=== PATIENT | male | born 1990 | race Caucasian/White ===

== ENCOUNTER 2022-08-09 07:50 | Emergency (ER) | payer OTHER ==
[~2022-08-09] VITALS: Ht 188 cm; Wt 99.8 kg
[~2022-08-09 07:50] MED LIST: MELOXICAM7.5 MG PO
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
[2022-08-09] MEDS ORDERED: ONDANSETRON ODT4 MG PO (08:12)
[2022-08-09] MEDS ORDERED: MORPHINE SULFAT15 MG PO (08:12)
[2022-08-09] MEDS ORDERED: LIDOCAINE1 EACH (08:12)
[2022-08-09] MEDS ORDERED: IBUPROFEN800 MG PO (08:12)
[2022-08-09] MEDS ORDERED: CYCLOBENZAPRINE10 MG PO (08:12)
[2022-08-09] MEDS ORDERED: NAPROSYN500 MG PO (10:53)
[2022-08-09] MEDS ORDERED: HYDROCODON-ACE1 EA10 PO (10:53)
[2022-08-09] MEDS ORDERED: CRUTCHES XX (10:54)
== END 2022-08-09 11:35 | disposition home or self-care (01) ==
LOC: ED 07:50
DX: S80.02XA Contusion of left knee, initial encounter (principal); S30.0XXA Contusion of lower back and pelvis, initial encounter; M23.92 Unspecified internal derangement of left knee; V69.9XXA Occupant (driver) (passenger) of heavy transport vehicle injured in unspecified traffic accident, initial encounter
CPT/HCPCS: 72131; 72192; 73700; 96372; 99283-25; J1885

== ENCOUNTER 2022-10-18 06:20 | Day surgery (SDC) | payer OTHER ==
[2022-10-17 15:12] VITALS: BP 129/86
[~2022-10-18] VITALS: Ht 188 cm; Wt 104.5 kg
[~2022-10-18 06:20] MED LIST changes: +AMOXICILLIN500 MG PO; +CRUTCHES XX; +CYCLOBENZAPRINE10 MG PO; +HYDROCODON-ACE1 EA10 PO; +IBUPROFEN800 MG PO; +LIDOCAINE1 EACH; +MORPHINE SULFAT15 MG PO; +NAPROSYN500 MG PO; +ONDANSETRON ODT4 MG PO
[2022-10-18 06:48] VITALS: BP 123/80
[2022-10-18] MEDS ORDERED: HYDROCODON-ACE1 EA10 PO (09:27)
[2022-10-18] MEDS ORDERED: DICLOFENAC SODI75 MG PO (09:27)
--- NOTE | 2022-10-18 09:32 | NUR ---
10/18/22 0932 Christi Bell 0925- PT ARRIVES TO PACU AROUSABLE TO STIMULI. RESP EVEN AND UNLABORED. OXYGEN SAT 100% ON 6L VIA MASK. ICE PACK APPLIED TO PT'S LEFT KNEE WITH DRESSING IN BETWEEN SKIN AND ICE PACK. 0931- PT REPORTS HE IS HAVING AN 8/10 ON TOP OF THE LEFT KNEE. DR. NARANJO AT THE BEDSIDE TO TALK WITH THE PT AND AWARE OF PAIN. PT IS CALMING TALKING, NO GRIMACING.
[2022-10-18 10:14] VITALS: BP 121/81
[2022-10-18 11:03] VITALS: BP 120/70
--- NOTE | 2022-10-18 11:21 | OR ---
[facility] [address], [place] [address] Signed DATE OF OPERATION: 10/18/2022 SURGEON: Stefano Yusuf MD PREOPERATIVE DIAGNOSIS: Medial meniscus tear, left knee. POSTOPERATIVE DIAGNOSIS: Medial meniscus tear, left knee. PROCEDURE PERFORMED: Left knee arthroscopy with partial medial meniscectomy. SYNOPTIC METEOROLOGIST: None. ANESTHESIA: General. BLOOD LOSS: Minimal. BRIEF HISTORY: Floyd is a 32-year-old gentleman with pain and instability in his knee. He had undergone MRI, which showed a posteromedial peripheral tear. Risks and benefits of operative treatment were discussed with him and he elected to proceed. Once consent was obtained, he was taken to the operating room. After adequate anesthesia he was placed on operating table. All downside pressure points well padded. The left leg was placed in well-padded leg chu. The right was placed in a leg chu in a flexed abducted external rotated position. The leg was prepped and draped in a standard sterile fashion. The portal sites were preinjected using 0.25% Marcaine with epinephrine. A standard inferior lateral and superolateral portals were made. The scope was introduced into the knee. ARTHROSCOPIC FINDINGS: The knee had moderate synovitis throughout. The patella was intact and tracked well in the trochlea. Medial and lateral gutters were clear. The lateral compartment was intact and the ACL and PCL were intact. Exam under anesthesia revealed a stable knee with a negative Cherelle and negative pivot shift. The posteromedial meniscus initially was thought to be final first visualization. However, following the MRI, we did palpate Electronically Signed By: STEFANO YUSUF MD 10/18/22 1121 PATIENT NAME: FLOYD SARKAR OPERATIVE REPORT DATE OF : 86 REPORT #: [id number] PHYSICIAN: STEFANO YUSUF MD PCP: NO PRIMARY CARE PHYSICIAN REPORT IS CONFIDENTIAL AND NOT TO BE RELEASED WITHOUT AUTHORIZATION [facility] [address] [place], [place] [address] Signed the posterior inferior aspect of the meniscus and did find about a 1.2 cm tear peripherally. The straight and curved biters were then used to trim the tear back to a stable rim and this was smoothed using the shaver and the debris was evacuated. The arthroscope was then removed. Portals were closed with 3-0 nylon and the knee was injected with 60 mg Toradol at the end of the case. The wounds were dressed with Adaptic, ABD, and Garrett wrap. He tolerated the procedure well. All sponge, needle, and instrument counts were correct. Stefano Yusuf MD BA/ALYSEL /[id number] Copies: ~ Electronically Signed By: STEFANO YUSUF MD 10/18/22 1121 PATIENT NAME: FLOYD SARKAR OPERATIVE REPORT DATE OF : 86 REPORT #: [id number] PHYSICIAN: STEFANO YUSUF MD PCP: NO PRIMARY CARE PHYSICIAN REPORT IS CONFIDENTIAL AND NOT TO BE RELEASED WITHOUT AUTHORIZATION
--- NOTE | 2022-10-18 11:27 | NUR ---
LE 1005 PATIENT BACK TO DAY SURGERY ROOM 6. REPORT RECIEVED FROM MEGHNA PINEDA. PATIENT IS ALERT AND ORIENTED. BREATHING EQUAL AND UNLABORED. OXYGEN SATURATIONS ABOVE 90% ON ROOM AIR. PATIENT PAIN AT A 6/10. PATIENT GIVEN WATER AND CRACKERS. DENIES BEING NAUSEATEED. IVF INFUSING. SURGICAL DRESSING CLEAN, DRY AND INTACT. SCD'S ON. SURGICAL LEG ELEVATED. ICE APPLIED. CALL LIGHT WITHIN REACH NO FUTHER NEEDS. NO QUESTIONS AT THIS TIME. AT BEDSIDE.
--- NOTE | 2022-10-18 11:29 | NUR ---
LE 1012 PATIENT GIVEN PRN PAIN MEDICINE. LE 1040 CORINNE BROCK IN ROOM. PATIENT STATES PAIN IMPROVING. PATIENT AMBULATED TO THE RESTROOM. PATIENT TOLERATED IT WELL. PATIENT STATES "PAIN IS BETTER NOW THAT I AM ABLE TO WALK TO THE RESTROOM." LE 1105 PATIENT ALERT AND ORIENTED. BREATHING EQUAL AND UNLABORED OXYGEN SATURATIONS ABOVE 90% ON ROOM AIR. PATIENT PAIN IS A 3/10 AND TOLERABLE. PATIENT DENIES BEING NAUSEATED. SURGICAL SITE CLEAN, DRY AND INTACT. LE 1110 PATIENT HAS MET DISCHARGE CRITERIA. PATIENT WAS ABLE TO DRESS SELF AND TOLERATE IT WELL. PATIENT GIVEN DISCHARGE INSTRUCTIONS AND UNDERSTOOD. NO QUESTIONS FROM HIM AND HIS AT THIS TIME. IV D/C'D WNL. PATIENT WHEELED OUT OF FACILITY TO PRIVATE AUTO WITH NO FUTHER NEEDS.
--- NOTE | 2022-10-18 11:58 | NUR ---
PT ALERT,ORIENTED AND HIS PATY WILL ARRIVE AFTER KIDS ARE AT SCHOOL ALL QUESTIONS ASKED ANSWERED. PT REQUESTED PRAYER, GAVE BLESSING AND WILL FOLLOW NEEDED
== END 2022-10-18 11:10 | disposition home or self-care (01) ==
LOC: DS 06:20
PROVIDERS: ATTEND Specialist
DX: S83.242A Other tear of medial meniscus, current injury, left knee, initial encounter (principal); X58.XXXA Exposure to other specified factors, initial encounter; M65.862 Other synovitis and tenosynovitis, left lower leg
CPT/HCPCS: 01400; J0131; J0690; J1885; J2405; J2704; J3010; J7121